=== PATIENT | female | born 1975 | race Hispanic/Latino ===

== ENCOUNTER 2018-06-03 09:14 | Emergency (ER) | payer SELFPAY ==
[2018-06-03 09:30] VITALS: BP 150/97
[2018-06-03] MEDS ORDERED: TORADOL IM ONE (09:43)
[2018-06-03 09:52] LABS: Bacteria,Urine 3+ /HPF (Negative); Bilirubin,Urine NEG (Negative); Blood,Urine NEG (Negative); Color,Urine Amber (Yellow); Mucus,Urine 3+ /HPF
--- NOTE | 2018-06-03 10:15 | Emergency Department Report ---
ED General Adult HPI - General Chief complaint: Abdominal Pain Stated complaint: SIDE PAIN Time Seen by Provider: 06/03/18 09:36 Source: patient Mode of arrival: Ambulatory Limitations: No Limitations - History of Present Illness Initial comments: Patient is a 42-year-old female who is presenting with bilateral side and flank pain for the last 3 days. Patient states that she has some pressure when she is trying to urinate as well. Patient states hurts to move. Pain is a 6 out of 10 in severity. Patient denies any fevers chills nausea vomiting diarrhea at this time. Severity scale (0 -10): 8 - Related Data Home Medications Medication Instructions Recorded Confirmed Last Taken ALBUTEROL Inhaler (OR & NICU) 2 puff IH QID PRN 12/08/12 11/08/13 12/08/12 [Proair] Metformin HCl [Glucophage] 1,000 mg PO BID 09/27/13 11/08/13 11/04/13 Previous Rx's Medication Instructions Recorded Last Taken Type Famotidine [Pepcid] 20 mg PO BID #20 tablet 09/29/13 11/07/13 Rx Ciprofloxacin HCl [Cipro] 500 mg PO Q12H #14 tab 11/08/13 Unknown Rx Famotidine [Pepcid] 20 mg PO BID #40 tablet 11/08/13 Unknown Rx HYDROcodone/APAP 5-325 [[place] 1 each PO Q6HR PRN #20 tablet 11/08/13 Unknown Rx 5/325] Promethazine [Phenergan] 25 mg PO Q6H PRN #20 tablet 11/08/13 Unknown Rx metroNIDAZOLE [Flagyl] 500 mg PO Q8HR #14 tablet 11/08/13 Unknown Rx Acetaminophen/Codeine [Tylenol 1 tab PO Q6H PRN #15 tab 11/23/15 Unknown Rx /Codeine # 3 tab] Clindamycin [Clindamycin CAP] 600 mg PO BID #60 capsule 11/23/15 Unknown Rx Ibuprofen [Motrin] 600 mg PO Q8H PRN #20 tablet 06/03/18 Unknown Rx Phenazopyridine [Pyridium] 100 mg PO TID 2 Days tab 06/03/18 Unknown Rx levoFLOXacin [Levaquin TAB] 500 mg PO QDAY #7 tablet 06/03/18 Unknown Rx traMADol [Ultram] 50 mg PO Q6HR PRN #12 tablet 06/03/18 Unknown Rx Allergies Allergy/AdvReac Type Severity Reaction Status Date / Time No Known Allergies Allergy Verified 05/28/15 10:37 ED Review of Systems ROS: Stated complaint: SIDE PAIN Other details as noted in HPI Comment: All other systems reviewed and negative ED Past Medical Hx - Past Medical History Hx Diabetes: Yes Hx GERD: Yes Hx Asthma: Yes (Uses nubilizer) Additional medical history: degenerative disease, fibromyalgia - Surgical History Hx Cholecystectomy: Yes Hx Breast Surgery: Yes (BREAST REDUCTION) Additional Surgical History: c-sections, hysterectomy - Social History Smoking Status: Current Every Day Smoker Substance Use Type: None - Medications Home Medications: Home Medications Medication Instructions Recorded Confirmed Last Taken Type ALBUTEROL Inhaler (OR & NICU) 2 puff IH QID PRN 12/08/12 11/08/13 12/08/12 History [Proair] Metformin HCl [Glucophage] 1,000 mg PO BID 09/27/13 11/08/13 11/04/13 History Famotidine [Pepcid] 20 mg PO BID #20 tablet 09/29/13 11/08/13 11/07/13 Rx Ciprofloxacin HCl [Cipro] 500 mg PO Q12H #14 tab 11/08/13 Unknown Rx Famotidine [Pepcid] 20 mg PO BID #40 tablet 11/08/13 Unknown Rx HYDROcodone/APAP 5-325 [[place] 1 each PO Q6HR PRN #20 tablet 11/08/13 Unknown Rx 5/325] Promethazine [Phenergan] 25 mg PO Q6H PRN #20 tablet 11/08/13 Unknown Rx metroNIDAZOLE [Flagyl] 500 mg PO Q8HR #14 tablet 11/08/13 Unknown Rx Acetaminophen/Codeine [Tylenol 1 tab PO Q6H PRN #15 tab 11/23/15 Unknown Rx /Codeine # 3 tab] Clindamycin [Clindamycin CAP] 600 mg PO BID #60 capsule 11/23/15 Unknown Rx Ibuprofen [Motrin] 600 mg PO Q8H PRN #20 tablet 06/03/18 Unknown Rx Phenazopyridine [Pyridium] 100 mg PO TID 2 Days tab 06/03/18 Unknown Rx levoFLOXacin [Levaquin TAB] 500 mg PO QDAY #7 tablet 06/03/18 Unknown Rx traMADol [Ultram] 50 mg PO Q6HR PRN #12 tablet 06/03/18 Unknown Rx ED Physical Exam - General Limitations: No Limitations General appearance: alert, in no apparent distress - Head Head exam: Present: atraumatic, normocephalic - Eye Eye exam: Present: normal appearance - ENT ENT exam: Present: mucous membranes moist - Neck Neck exam: Present: normal inspection - Respiratory Respiratory exam: Present: normal lung sounds bilaterally. Absent: respiratory distress, wheezes, rales, rhonchi - Cardiovascular Cardiovascular Exam: Present: regular rate, normal rhythm. Absent: systolic murmur, diastolic murmur, rubs, gallop - GI/Abdominal GI/Abdominal exam: Present: soft, normal bowel sounds. Absent: distended, tenderness, guarding, rebound - Extremities Exam Extremities exam: Present: normal inspection - Back Exam Back exam: Present: normal inspection, paraspinal tenderness - Neurological Exam Neurological exam: Present: alert, oriented X3 - Psychiatric Psychiatric exam: Present: normal affect, normal mood - Skin Skin exam: Present: warm, dry, intact, normal color. Absent: rash ED Course Vital Signs 06/03/18 06/03/18 09:28 09:47 Temperature 99.1 F Pulse Rate 111 H Respiratory 18 18 Rate Blood Pressure 150/97 O2 Sat by Pulse 96 Oximetry ED Medical Decision Making - Lab Data Lab Results 06/03/18 Range/Units Unknown Urine Color [place] (Yellow) Urine Turbidity Cloudy (Clear) Urine pH 5.0 (5.0-7.0) Ur Specific [place] 1.020 (1.003-1.030) Urine Protein 100 mg/dl (Negative) mg/dL Urine Glucose (UA) 50 (Negative) mg/dL Urine Ketones Neg (Negative) mg/dL Urine Blood Neg (Negative) Urine Nitrite Pos (Negative) Urine Bilirubin Neg (Negative) Urine Urobilinogen 2.0 (<2.0) mg/dL Ur Leukocyte Esterase Lg (Negative) Urine WBC (Auto) 74.0 H (0.0-6.0) /HPF Urine RBC (Auto) 7.0 (0.0-6.0) /HPF U Epithel Cells (Auto) 7.0 (0-13.0) /HPF Urine Bacteria (Auto) 3+ (Negative) /HPF Urine Mucus 3+ /HPF - Medical Decision Making Patient be started on antibiotics for her UTI with discharged home. Critical care attestation.: If time is entered above; I have spent that time in minutes in the direct care of this critically ill patient, excluding procedure time. ED Disposition Clinical Impression: Acute cystitis Qualifiers: Hematuria presence: with hematuria Qualified Code(s): N30.01 - Acute cystitis with hematuria Disposition: TO HOME OR SELFCARE Is pt being admited?: No Does the pt Need Aspirin: No Condition: Stable Instructions: Urinary Tract Infection in Women (ED) Referrals: ANTONINA ALCAZAR MD [Primary Care Provider] - 3-5 Days
== END 2018-06-03 10:21 | disposition home or self-care (01) ==
LOC: ED 09:14
DX: N30.00 Acute cystitis without hematuria (principal); E11.9 Type 2 diabetes mellitus without complications; K21.9 Gastro-esophageal reflux disease without esophagitis; J45.909 Unspecified asthma, uncomplicated; F17.200 Nicotine dependence, unspecified, uncomplicated; Z90.49 Acquired absence of other specified parts of digestive tract; Z90.710 Acquired absence of both cervix and uterus; Z79.84 Long term (current) use of oral hypoglycemic drugs
CPT/HCPCS: 81001; 96372; 99283; J1885

== ENCOUNTER 2018-09-04 11:24 | Emergency (ER) | payer MEDICAID, OTHER ==
--- NOTE | 2018-09-04 11:31 | Emergency Department Report ---
Blank Doc - Documentation Documentation: 42 y o female presents left sided abdominal pain radiating to back x 2 months denies n/v/d LAbs ordered, ua ACC eval
[2018-09-04 11:45] LABS: Basophils # (Auto) 0.1 K/mm3 (0.0-0.1); Basophils % (Auto) 1.1 % (0.0-1.8); Eosinophils # (Auto) 0.1 K/mm3 (0.0-0.4); Eosinophils % (Auto) 0.9 % (0.0-4.3); Hematocrit 47.9 % (30.3-42.9); Hemoglobin 16.6 gm/dl (10.1-14.3); Lymphocytes # (Auto) 3.8 K/mm3 (1.2-5.4); Lymphocytes % (Auto) 38.6 % (13.4-35.0); Mean Corpuscular HGB Conc 35 % (30-34); Mean Corpuscular Volume 90 fl (79-97); Monocytes # (Auto) 0.6 K/mm3 (0.0-0.8); Monocytes % (Auto) 6.5 % (0.0-7.3); Platelet Count 314 K/mm3 (140-440); Red Blood Count 5.35 M/mm3 (3.65-5.03); Red Cell Distribution Width 13.8 % (13.2-15.2)
[2018-09-04 11:54] LABS: INR 0.89 (0.87-1.13)
[2018-09-04 11:55] LABS: BUN/Creatinine Ratio 18; Blood Urea Nitrogen 9 mg/dL (7-17); Calcium 9.7 mg/dL (8.4-10.2); Hemolysis Index 9
[2018-09-04 12:06] LABS: Bacteria,Urine 1+ /HPF (Negative); Bilirubin,Urine NEG (Negative); Blood,Urine NEG (Negative); Color,Urine Yellow (Yellow); Mucus,Urine 1+ /HPF; Protein,Urine <15 mg/dL mg/dL (Negative); Urobilinogen,Urine < 2.0 mg/dL (<2.0)
[2018-09-04] MEDS ORDERED: PEPCID IV ONE (12:36)
[2018-09-04] MEDS ORDERED: NACL 0.9% 1000 ML 1,000 ML IV ONE ×2 (12:36→14:39)
[2018-09-04] MEDS ORDERED: TORADOL IV ONE (12:36)
--- NOTE | 2018-09-04 12:39 | Emergency Department Report ---
ED Abdominal Pain HPI - General Chief Complaint: Abdominal Pain Stated Complaint: ABD PAIN Time Seen by Provider: 09/04/18 11:28 Source: patient, EMS Mode of arrival: Wheelchair Limitations: No Limitations - History of Present Illness Initial Comments: Mrs. Bonds is a 42-year-old female who presents with 2 months of left flank pain abdominal pain with nausea. Poor appetite. She's had a large amount of weight loss. CT scan performed in June did not reveal any acute intra- abdominal or pelvic pathology. Generalized weakness Previous history of colitis, constipation, gastritis. MD Complaint: abdominal pain, flank pain -: Gradual, month(s) (2) Location: diffuse, LLQ Radiation: LLQ Severity: severe Severity scale (0 -10): 10 Quality: cramping Consistency: constant Improves With: nothing Worsens With: eating Associated Symptoms: nausea, vomiting - Related Data Home Medications Medication Instructions Recorded Confirmed Last Taken ALBUTEROL Inhaler (OR & NICU) 2 puff IH QID PRN 12/08/12 11/08/13 12/08/12 [Proair] Metformin HCl [Glucophage] 1,000 mg PO BID 09/27/13 11/08/13 11/04/13 Previous Rx's Medication Instructions Recorded Last Taken Type Famotidine [Pepcid] 20 mg PO BID #20 tablet 09/29/13 11/07/13 Rx Ciprofloxacin HCl [Cipro] 500 mg PO Q12H #14 tab 11/08/13 Unknown Rx Famotidine [Pepcid] 20 mg PO BID #40 tablet 11/08/13 Unknown Rx HYDROcodone/APAP 5-325 [[place] 1 each PO Q6HR PRN #20 tablet 11/08/13 Unknown Rx 5/325] Promethazine [Phenergan] 25 mg PO Q6H PRN #20 tablet 11/08/13 Unknown Rx metroNIDAZOLE [Flagyl] 500 mg PO Q8HR #14 tablet 11/08/13 Unknown Rx Acetaminophen/Codeine [Tylenol 1 tab PO Q6H PRN #15 tab 11/23/15 Unknown Rx /Codeine # 3 tab] Clindamycin [Clindamycin CAP] 600 mg PO BID #60 capsule 11/23/15 Unknown Rx Ibuprofen [Motrin] 600 mg PO Q8H PRN #20 tablet 06/03/18 Unknown Rx Phenazopyridine [Pyridium] 100 mg PO TID 2 Days tab 06/03/18 Unknown Rx levoFLOXacin [Levaquin TAB] 500 mg PO QDAY #7 tablet 06/03/18 Unknown Rx traMADol [Ultram] 50 mg PO Q6HR PRN #12 tablet 06/03/18 Unknown Rx Acetaminophen [Tylenol] 325 mg PO Q8H PRN #20 capsule 06/28/18 Unknown Rx Docusate Sodium [Colace] 100 mg PO BID PRN #20 capsule 06/28/18 Unknown Rx Ondansetron [Zofran Odt] 4 mg PO Q8HR PRN #20 tab.rapdis 06/28/18 Unknown Rx Promethazine [Phenergan] 25 mg PO Q6HR PRN #20 tab 09/04/18 Unknown Rx Allergies Allergy/AdvReac Type Severity Reaction Status Date / Time No Known Allergies Allergy Verified 09/04/18 11:25 ED Review of Systems ROS: Stated complaint: ABD PAIN Other details as noted in HPI Comment: All other systems reviewed and negative Constitutional: malaise. denies: fever Respiratory: denies: cough Cardiovascular: denies: chest pain Gastrointestinal: abdominal pain, nausea, vomiting Musculoskeletal: back pain ED Past Medical Hx - Past Medical History Previous Medical History?: Yes Hx Diabetes: Yes Hx GERD: Yes Hx Asthma: Yes (Uses nubilizer) Additional medical history: degenerative disease, fibromyalgia - Surgical History Past Surgical History?: Yes Hx Cholecystectomy: Yes Hx Breast Surgery: Yes (BREAST REDUCTION) Additional Surgical History: c-sections, hysterectomy - Social History Smoking Status: Never Smoker Substance Use Type: None - Medications Home Medications: Home Medications Medication Instructions Recorded Confirmed Last Taken Type ALBUTEROL Inhaler (OR & NICU) 2 puff IH QID PRN 12/08/12 11/08/13 12/08/12 History [Proair] Metformin HCl [Glucophage] 1,000 mg PO BID 09/27/13 11/08/13 11/04/13 History Famotidine [Pepcid] 20 mg PO BID #20 tablet 09/29/13 11/08/13 11/07/13 Rx Ciprofloxacin HCl [Cipro] 500 mg PO Q12H #14 tab 11/08/13 Unknown Rx Famotidine [Pepcid] 20 mg PO BID #40 tablet 11/08/13 Unknown Rx HYDROcodone/APAP 5-325 [[place] 1 each PO Q6HR PRN #20 tablet 11/08/13 Unknown Rx 5/325] Promethazine [Phenergan] 25 mg PO Q6H PRN #20 tablet 11/08/13 Unknown Rx metroNIDAZOLE [Flagyl] 500 mg PO Q8HR #14 tablet 11/08/13 Unknown Rx Acetaminophen/Codeine [Tylenol 1 tab PO Q6H PRN #15 tab 11/23/15 Unknown Rx /Codeine # 3 tab] Clindamycin [Clindamycin CAP] 600 mg PO BID #60 capsule 11/23/15 Unknown Rx Ibuprofen [Motrin] 600 mg PO Q8H PRN #20 tablet 06/03/18 Unknown Rx Phenazopyridine [Pyridium] 100 mg PO TID 2 Days tab 06/03/18 Unknown Rx levoFLOXacin [Levaquin TAB] 500 mg PO QDAY #7 tablet 06/03/18 Unknown Rx traMADol [Ultram] 50 mg PO Q6HR PRN #12 tablet 06/03/18 Unknown Rx Acetaminophen [Tylenol] 325 mg PO Q8H PRN #20 capsule 06/28/18 Unknown Rx Docusate Sodium [Colace] 100 mg PO BID PRN #20 capsule 06/28/18 Unknown Rx Ondansetron [Zofran Odt] 4 mg PO Q8HR PRN #20 tab.rapdis 06/28/18 Unknown Rx Promethazine [Phenergan] 25 mg PO Q6HR PRN #20 tab 09/04/18 Unknown Rx ED Physical Exam - General Limitations: No Limitations General appearance: alert, in no apparent distress, other (appears uncomfortable) - Head Head exam: Present: atraumatic, normocephalic - Eye Eye exam: Present: normal appearance - ENT ENT exam: Present: mucous membranes dry - Neck Neck exam: Present: normal inspection, full ROM - Respiratory Respiratory exam: Present: normal lung sounds bilaterally. Absent: respiratory distress, wheezes, rales, rhonchi - Cardiovascular Cardiovascular Exam: Present: regular rate, normal rhythm. Absent: systolic murmur, diastolic murmur, rubs, gallop - GI/Abdominal GI/Abdominal exam: Present: soft, guarding, normal bowel sounds. Absent: distended, tenderness, rebound - Extremities Exam Extremities exam: Present: normal inspection - Back Exam Back exam: Present: normal inspection - Neurological Exam Neurological exam: Present: alert, oriented X3 - Psychiatric Psychiatric exam: Present: normal affect, normal mood - Skin Skin exam: Present: warm, dry, intact, normal color. Absent: rash ED Course Vital Signs 09/04/18 11:28 Temperature 97.8 F Pulse Rate 129 H Respiratory 18 Rate Blood Pressure 117/76 O2 Sat by Pulse 99 Oximetry ED Medical Decision Making - Lab Data Result diagrams: 09/04/18 11:32 09/04/18 11:32 Laboratory Results - last 24 hr 09/04/18 09/04/18 09/04/18 11:32 11:32 11:32 WBC 9.9 RBC 5.35 H Hgb 16.6 H Hct 47.9 H MCV 90 MCH 31 MCHC 35 H RDW 13.8 Plt Count 314 Lymph % (Auto) 38.6 H [place] % (Auto) 6.5 Eos % (Auto) 0.9 Baso % (Auto) 1.1 Lymph # 3.8 [place] # 0.6 Eos # 0.1 Baso # 0.1 Seg Neutrophils % 52.9 Seg Neutrophils # 5.2 PT 12.6 INR 0.89 Sodium 138 Potassium 4.1 Chloride 97.1 L Carbon Dioxide 26 Anion Gap 19 BUN 9 Creatinine 0.5 L Estimated GFR > 60 BUN/Creatinine Ratio 18 Glucose 170 H Calcium 9.7 Amylase 57 Lipase 17 Urine Color Urine Turbidity Urine pH Ur Specific [place] Urine Protein Urine Glucose (UA) Urine Ketones Urine Blood Urine Nitrite Urine Bilirubin Urine Urobilinogen Ur Leukocyte Esterase Urine WBC (Auto) Urine RBC (Auto) U Epithel Cells (Auto) Urine Bacteria (Auto) Ur Transition Epith Cell Urine Mucus 09/04/18 Unknown WBC RBC Hgb Hct MCV MCH MCHC RDW Plt Count Lymph % (Auto) [place] % (Auto) Eos % (Auto) Baso % (Auto) Lymph # [place] # Eos # Baso # Seg Neutrophils % Seg Neutrophils # PT INR Sodium Potassium Chloride Carbon Dioxide Anion Gap BUN Creatinine Estimated GFR BUN/Creatinine Ratio Glucose Calcium Amylase Lipase Urine Color Yellow Urine Turbidity Slightly-cloudy Urine pH 5.0 Ur Specific [place] 1.016 Urine Protein <15 mg/dl Urine Glucose (UA) Neg Urine Ketones Tr Urine Blood Neg Urine Nitrite Neg Urine Bilirubin Neg Urine Urobilinogen < 2.0 Ur Leukocyte Esterase Tr Urine WBC (Auto) 3.0 Urine RBC (Auto) 3.0 U Epithel Cells (Auto) 4.0 Urine Bacteria (Auto) 1+ Ur Transition Epith Cell < 1 Urine Mucus 1+ - Radiology Data Radiology results: report reviewed CT abdomen and pelvis no acute inflammatory process according to radiology report no acute abnormality - Medical Decision Making 2 months of abdominal pain will weight loss obvious dehydration differential diagnosis includes peptic ulcer disease, irritable bowel syndrome, inflammatory bowel disease. Prescribe promethazine. Referred to GI specialist and internal medicine medical clinic Critical care attestation.: If time is entered above; I have spent that time in minutes in the direct care of this critically ill patient, excluding procedure time. ED Disposition Clinical Impression: Abdominal pain, Dehydration Disposition: - TO HOME OR SELFCARE Is pt being admited?: No Does the pt Need Aspirin: No Condition: Stable Instructions: Abdominal Pain (ED) Prescriptions: Promethazine [Phenergan] 25 mg PO Q6HR PRN #20 tab PRN Reason: Nausea Referrals: [facility] MD MICK [Primary Care Provider] - 3-5 Days LUCIANA BANDA MD [Staff Physician] - 3-5 Days
[2018-09-04] MEDS ORDERED: MORPHINE IV ONE ×2 (13:51→14:39)
[2018-09-04] MEDS ORDERED: ZOFRAN ONE (15:33)
--- NOTE | 2018-09-04 15:45 | Cat Scan Report ---
PROCEDURE: CT ABDOMEN PELVIS W CON TECHNIQUE: Computerized axial tomography of the abdomen and pelvis was performed after the IV inject ion of iodinated nonionic contrast. CT DOSE LENGTH PRODUCT: 1899 mGycm HISTORY: abdominal pain left flank pain COMPARISONS: 06/28/2018 . FINDINGS: Visualized lower thorax: No significant abnormality. Liver: There is again seen an ill-defined area of low-attenuation in the left hepatic lobe, likely re lated to focal fatty infiltration. Spleen: Normal size and attenuation. Gallbladder and biliary system: There has been cholecystectomy. There is diffuse biliary dilatation, likely related to prior cholecystectomy. Correlate for any signs of biliary obstruction however. Pancreas: Normal. Adrenals: Normal. Kidneys: Normal. GI tract: No appendiceal inflammation. No bowel obstruction or inflammation . Lymph nodes and mesentery: Normal. Vasculature: Normal.. Bladder: Normal. Reproductive organs: Normal. Peritoneum: No free fluid. Musculoskeletal structures: No significant abnormality. Other: None . IMPRESSION: No acute abnormality is identified . This document is electronically signed by Brandie Iverson MD., September 04 2018 04:43:02 PM ET
[2018-09-04 16:25] VITALS: BP 171/85
== END 2018-09-04 16:26 | disposition home or self-care (01) ==
LOC: ED 11:24
DX: R10.32 Left lower quadrant pain (principal); E86.0 Dehydration; E11.9 Type 2 diabetes mellitus without complications; K21.9 Gastro-esophageal reflux disease without esophagitis; J45.909 Unspecified asthma, uncomplicated; Z90.49 Acquired absence of other specified parts of digestive tract; Z90.710 Acquired absence of both cervix and uterus
CPT/HCPCS: 36415; 74177; 80048; 81001; 82150; 83690; 84703; 85025; 85610; 96374; 96375; 96376; 99284; J1885; J2270; J2405; J7030; Q9967

== ENCOUNTER 2019-06-01 09:18 | Outpatient (CLI) | payer OTHER ==
--- NOTE | 2019-06-01 10:45 | XRay Report ---
RIGHT ANKLE 2 VIEWS INDICATION / CLINICAL INFORMATION: Right ankle pain. COMPARISON: Right foot 05/28/15. FINDINGS: BONES / JOINT(S): Metallic surgical anchors overlie the distal fibula and calcaneus. There are old po sttraumatic changes along the distal fibular tip. There are small dorsal and plantar calcaneal spurs. There are mild degenerative changes involving the midfoot and hindfoot. I see no evidence of acute f racture, dislocation or destructive lesion. SOFT TISSUES: No significant abnormality. ADDITIONAL FINDINGS: None. Signer Name: Aniceto Vallecillo MD Signed: 06/01/2019 10:41 AM Workstation Name: [id number]
== END 2019-06-01 09:19 | disposition home or self-care (01) ==
LOC: PF 09:18
PROVIDERS: ATTEND Internal Medicine
DX: H91.8X2 Other specified hearing loss, left ear (principal); M79.7 Fibromyalgia; F32.9 Major depressive disorder, single episode, unspecified; F41.9 Anxiety disorder, unspecified
CPT/HCPCS: 94010